=== PATIENT | female | born 1960 | race Hispanic/Latino ===

== ENCOUNTER 2021-01-23 12:22 | Emergency (ER) | payer OTHER, MEDICARE ==
[~2021-01-23] VITALS: Ht 149.9 cm; Wt 79.4 kg
[2021-01-23] MEDS ORDERED: CIPRO500 MG PO (13:20)
[2021-01-23] MEDS ORDERED: PYRIDIUM100 MG PO (13:21)
== END 2021-01-23 14:00 | disposition home or self-care (01) ==
LOC: FSED 14:00
DX: R30.0 Dysuria (principal); N39.0 Urinary tract infection, site not specified; I10 Essential (primary) hypertension; E78.5 Hyperlipidemia, unspecified; E03.9 Hypothyroidism, unspecified
CPT/HCPCS: 81003; 99283